=== PATIENT | female | born 1970 | race Caucasian/White ===

== ENCOUNTER 2016-10-18 11:27 | Day surgery (SDC) | payer BC ==
[~2016-10-18] VITALS: Ht 167.6 cm; Wt 81.6 kg
[~2016-10-18 11:27] MED LIST: ABILIFY10 MG PO; AMETHIA 0.15-01 EACH PO; ARIPIPRAZOLE10 MG PO; BENZTROPINE MESY1 MG PO; BIOTIN10000 MC1 PO; CIPRO500 MG PO; CLARITIN,ALAVAR10 MG PO; CLONAZEPAM0.5 MG PO; GEODON40 MG PO; KLONOPIN0.5 M1 PO; VIACTIV SOFT C1 EACH PO; WOMEN'S DAILY1 EAC2 PO; ZOLOFT100 MG PO
[2016-10-18 12:04] VITALS: BP 125/79
[2016-10-18] MEDS ORDERED: ENDOCET 5-3251 EACH PO (15:01)
[2016-10-18] MEDS ORDERED: IBUPROFEN800 MG PO (15:01)
[2016-10-18 15:45] VITALS: BP 140/86
[2016-10-18 16:26] VITALS: BP 137/86
== END 2016-10-18 16:33 | disposition home or self-care (01) ==
LOC: SDC 11:27
DX: Z30.2 Encounter for sterilization (principal); N83.12 Corpus luteum cyst of left ovary; N85.4 Malposition of uterus; N83.291 Other ovarian cyst, right side; Z15.01 Genetic susceptibility to malignant neoplasm of breast; E66.9 Obesity, unspecified; Z68.29 Body mass index [BMI] 29.0-29.9, adult; F20.0 Paranoid schizophrenia; Z83.3 Family history of diabetes mellitus; Z82.49 Family history of ischemic heart disease and other diseases of the circulatory system; Z80.8 Family history of malignant neoplasm of other organs or systems; Z80.3 Family history of malignant neoplasm of breast; Z80.0 Family history of malignant neoplasm of digestive organs; Z88.0 Allergy status to penicillin
CPT/HCPCS: 88305; J0131; J1100; J1885; J2175; J2250; J2405; J2710; J3010; J7120